=== PATIENT | male | born 1985 | race Caucasian/White ===

== ENCOUNTER 2017-11-15 16:08 | Emergency (ER) | payer OTHER ==
[2017-11-15 16:14] VITALS: BP 126/80
[2017-11-15] MEDS ORDERED: PREDNISONE 20 MG TABLET PO ONE (17:04)
[2017-11-15] MEDS ORDERED: IBUPROFEN 600 MG TABLET PO ONE (17:04)
[2017-11-15] MEDS ORDERED: HYDROCODONE/ACETAMINOPHEN 5-325 MG TABLET PO ONE (17:04)
--- NOTE | 2017-11-15 17:10 | ER Document Report ---
ED Neck/Back Problem - General Chief Complaint: Back Pain Stated Complaint: LOW BACK PAIN Time Seen by Provider: 11/15/17 16:47 Information source: Patient Notes: 32-year-old male that presents today with the onset this morning of some left low back pain radiating down the back of his thigh to the mid knee. Patient states she has had this problem many times in the past. He is currently visiting his girlfriend as he is stationed in [place]. Patient denies any leg dragging or foot drop. He denies any weakness or numbness of his legs. He denies any fevers or incontinence. He denies any recent trauma. TRAVEL OUTSIDE OF THE [place] IN LAST 30 DAYS: No - HPI Onset: Other - See above Where: Home Onset: Sudden Timing: Constant Quality of pain: Sharp Severity: Moderate Pain Level: 2 Recent injury: No Associated symptoms: Other - See above Exacerbated by: Movement of trunk Relieved by: Remaining still Similar symptoms previously: Yes Recently seen / treated by doctor: Yes Past Medical History - Social History Smoking Status: Unknown if Ever Smoked Family History: Reviewed & Not Pertinent Patient has suicidal ideation: No Patient has homicidal ideation: No Renal/ Medical History: Denies: Hx Peritoneal Dialysis Physical Exam - Vital signs Vitals: Temp Pulse Resp BP Pulse Ox 98.8 F 77 14 126/80 H 95 11/15/17 16:13 11/15/17 16:13 11/15/17 16:13 11/15/17 16:13 11/15/17 16:13 Notes: Reviewed vital signs and nursing note as charted by RN. CONSTITUTIONAL: Alert and oriented and responds appropriately to questions. Well -appearing; well-nourished ABD/GI: Normal bowel sounds; non-distended; soft, non-tender to deep palpation of all 4 quadrants of the abdomen BACK: The back appears normal and is non-tender to palpation along the midline spine with no obvious swelling, erythema, induration, or fluctuance present EXT: Normal ROM in all joints; non-tender to palpation; no cyanosis, no effusions, no edema SKIN: No acute lesions noted NEURO: 5 out of 5 strength of bilateral upper and lower extremities with excellent plantar and flexor extension of the foot. Sensation intact to light touch with good capillary refill and pulses distally. 2+ patellar reflexes bilaterally PSYCH: The patient's mood and manner are appropriate. Grooming and personal hygiene are appropriate. Course - Re-evaluation Re-evalutation: 11/15/17 17:07 Given the above history and physical examination I do not believe any imaging or laboratory work is necessary at this time. I will provide anti-inflammatory medications as well as pain medications with strict return precautions and follow-up with the primary care physician and specialist in [place]. I do believe acute cord compression, spine fracture, discitis, or epidural abscess to be extremely unlikely. - Vital Signs Vital signs: Temp Pulse Resp BP Pulse Ox 98.8 F 77 14 126/80 H 95 11/15/17 16:13 11/15/17 16:13 11/15/17 16:13 11/15/17 16:13 11/15/17 16:13 Discharge - Discharge Clinical Impression: Low back strain Qualifiers: Encounter type: initial encounter Qualified Code(s): S39.012A - Strain of muscle, fascia and tendon of lower back, initial encounter Condition: Good Disposition: HOME, SELF-CARE Additional Instructions: Come back immediately for any increased pain, swelling, weakness or numbness, fevers or vomiting, incontinence, or any other acute problems. Prescriptions: Hydrocodone/Acetaminophen [Allen 5-325 Tablet] 1 each PO Q6 PRN #12 tablet PRN Reason: For Pain Ibuprofen [Motrin 600 Mg Tablet] 600 mg PO Q6H PRN #24 tablet PRN Reason: for pain Prednisone 60 mg PO DAILY 4 Days #12 tablet
== END 2017-11-15 17:23 | disposition home or self-care (01) ==
LOC: ER 16:08
DX: S39.012A Strain of muscle, fascia and tendon of lower back, initial encounter (principal); M79.652 Pain in left thigh; M25.562 Pain in left knee; X58.XXXA Exposure to other specified factors, initial encounter
CPT/HCPCS: 99283; J7512